=== PATIENT | female | born 1995 | race Caucasian/White ===

== ENCOUNTER 2025-01-23 09:47 | Emergency (ER) | payer OTHER, SELFPAY ==
--- NOTE | 2025-01-23 09:56 | ED.EXTPRO ---
HPI - Extremity Problem General Chief complaint: Extremity Problem,Nontraumatic Stated complaint: rt shoulder pain Time Seen by Provider: 01/23/25 09:56 Source: patient Mode of arrival: ambulatory Limitations: no limitations History of Present Illness HPI Narrative: Chaya is a 29-year-old female patient presenting to the clinic today with complaints of right shoulder pain/shoulder blade pain x2 weeks. She reports she is having pain when lifting upper arm in her right shoulder blade and also when pushing. States the pain is sharp when she is using her right arm and dull/aching without use of the right arm. Also reports some pain to the right posterior shoulder. No known injury. Rates her pain currently 7 at 10. Denies any radiation of pain down her right arm. Denies any chest pain or shortness of breath. No URI symptoms. States she does heavy lifting at work. Related Data Allergies Allergy/AdvReac Type Severity Reaction Status Date / Time Penicillins Allergy Unknown Unknown Verified 01/23/25 10:11 Review of Systems Review of Systems: Pertinent positives per HPI. Patient denies any fever, chills, rash, headache, visual changes, dizziness, cough, runny nose, sore throat, shortness of breath, chest pain, palpitations, nausea, vomiting, diarrhea, constipation, abdominal pain, or any urinary issues. PMFSH Comments At the time of my signature, I reviewed and agree with the nursing past medical, surgical, social, and family history. There is no relevant family history pertinent to the patient complaint. Exam Narrative: General: Well-developed, well nourished, in no apparent distress Head: Normocephalic, atraumatic. Cardio: Regular rate and rhythm, s1 and s2 normal, no murmur appreciated. Resp: Clear to auscultation bilaterally, no rhonchi, rales, wheezing or rubs. Musculoskeletal: No deformity, no bruising or swelling, tender to palpation over the right rhomboid musculature and over the right posterior shoulder/rotator cuff, pain with lifting her arm above her head on the right side, able rib to resist empty can in full can testing however she had posterior right shoulder pain with movement, grossly normal range of motion, muscle strength strong and equal, equal strong bilateral hand strength, peripheral pulse strong, no edema, no cyanosis, normal gait and station Course Course Emergency Course: Portions of this record may have been created with voice recognition software. Level of Care: Express Care Visit Vital Signs Vital signs: Vital Signs Temperature 36.9 C 01/23/25 10:08 Pulse Rate 75 01/23/25 10:08 Respiratory Rate 20 01/23/25 10:08 Blood Pressure 131/81 01/23/25 10:08 Pulse Oximetry 100 01/23/25 10:08 Oxygen Delivery Room Air 01/23/25 10:08 Temperature 36.9 C 01/23/25 10:08 Pulse Rate 75 01/23/25 10:08 Respiratory Rate 20 01/23/25 10:08 Blood Pressure 131/81 01/23/25 10:08 Pulse Oximetry 100 01/23/25 10:08 Oxygen Delivery Room Air 01/23/25 10:08 Vital signs reviewed MDM - Extremity (Nontraumatic) MDM Narrative Medical decision making narrative: At the time of visit patient is resting comfortably on the exam table. Patient appears to be nontoxic. Plan: I suspect patient has a right rhomboid muscle strain/right shoulder tendinitis. Prescription for Medrol Dosepak and muscle relaxer was sent to the pharmacy. Work note was given. Supportive measures were discussed with the patient and they voiced understanding discharge instructions and agrees to treatment plan. Return precautions reviewed Differential Diagnosis Differential diagnosis: Likely other (Shoulder tendinitis, shoulder strain, right scapular pain, right rhomboid muscle strain, shoulder impingement, AC joint separation, rotator cuff injury) Discharge Plan Discharge Clinical Impression: Right shoulder tendinitis Muscle strain of right shoulder region Qualifiers: Encounter type: initial encounter Qualified Code(s): S46.911A - Strain of unspecified muscle, fascia and tendon at shoulder and upper arm level, right arm, initial encounter Patient Disposition: Home Condition: Stable Instructions: Antibiotic Form, Muscle Strain (ED), Rotator Cuff Tendinitis (ED) Additional Instructions: Take any prescription medication only as prescribed-Medrol Dosepak and Flexeril Be mindful of sedation precautions given to you if taking a muscle relaxer. May use heat or ice to the affected area Consider massage or chiropractor adjustment if this was discussed with provider May use blue emu, lidocaine patches, or asper cream to affected area- do not apply heat or ice directly over cream- can cause burn. Complete appropriate back stretching exercises. Follow up with your PCP in 3-5 days if symptom persist. Patient Language: Spanish Prescriptions: New methylprednisolone [Medrol (Héctor)] 4 mg tablets,dose pack See Rx Instructions PO .COMPLEX Qty: 21 0RF Rx Instructions: orally per package directions cyclobenzaprine 10 mg tablet 10 mg PO Q8H PRN (Reason: muscle spasm) 7 Days Qty: 21 0RF Follow-up/Referrals: Aziza,MYRNA Espinosa [Primary Care Provider] - Stand Alone Forms: Work/School Release IP Time of Disposition: 10:18 Quality NIHSS Nursing Documentation ED NIHSS nursing documentation: reviewed/agree
--- OUTSIDE RECORDS SUMMARY | 2025-01-23 09:58 | XMS_ITS | Clinical Summary ---
Author Organization [facility] Address [address] [place] [address] Care Team Providers Care Hiv/Aids Care Nurse Name Role Phone Stuart Ervin Primary Care Provider Stuart Ervin Unavailable [phone] Allergies Active Allergy Reactions Criticality Noted Date Comments Penicillins Rash Medium Medications PNV 16-iron fum,pu-snlxj-pnn g3 35-1-200 mg capsule Take 1 tablet by mouth daily. Active ibuprofen (ADVIL,MOTRIN) 600 mg tabletIndication s:Pain Take 1 tablet (600 mg total) by mouth every 6 (six) hours as needed for pain. 30 tablet 1 07/29/2018 Active HYDROcodone-acet aminophen (NORCO) 5-325 mg per tabletIndication s:Pain Take 1 tablet by mouth every 6 (six) hours as needed for pain. 30 tablet 07/29/2018 Active Active Problems Problem Noted Date Diagnosed Date Asthma 03/10/2021 Anemia 03/15/2017 Immunizations Immunization Administration Dates Next Due MMR 07/29/2018 Surgical History Surgery Date Site/Laterality Comments TONSILLECTOMY Tonsillectomy SECTION Medical History Medical History Date Comments Hx Other Medical rt foot fx Anemia Gestational diabetes Family History Medical History Relation Name Comments COPD Maternal Grandfather Diabetes Maternal Grandfather Hypertension Maternal Grandfather Heart disease Maternal Grandmother Hypertension Maternal Grandmother Stroke Maternal Grandmother Diabetes Paternal Grandfather Hypertension Paternal Grandfather Arthritis Paternal Grandmother Diabetes Paternal Grandmother Relation Name Status Comments Father Alive Maternal Grandfather Maternal Grandmother Mother Alive Paternal Grandfather Paternal Grandmother Alive Social History Tobacco Use Types Packs/Day Years Used Date Smoking Tobacco: Never Smokeless Tobacco: Never Alcohol Use Standard Drinks/Week Comments No 0 (1 standard drink = 0.6 oz pur e alcohol) Comments No Sex and Gender Information Value Date Recorded Sex Assigned at Not on file Legal 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 Gender Identity Not on file Sexual Orientation Not on file Obstetrics History Para Term AB IAB SAB Ectopic Multiple Livin g Live Births 2 1 1 1 1 Date Outcome GA Total Labor Labor/2nd/3rd Weight Sex Type Anes PTL Gayle A1 A5 Name Clin 08/2016 Term 39w 5d F CS-LT ranv Epidur al N Livin g Complications:Failure to Pro alexandru in First Stage Last Filed Vital Signs Vital Sign Reading Time Taken Comments Blood Pressure 122/72 03/10/2021 12:34 AM CDT Pulse 77 03/10/2021 12:34 AM CDT Temperature 36.4 C (97.6 F) 03/09/2021 10:01 PM CDT Respiratory Rate 15 03/10/2021 12:34 AM CDT Oxygen Saturation 99% 03/10/2021 12:34 AM CDT Inhaled Oxygen Concentration - - Weight 69.9 kg (154 lb) 03/09/2021 10:01 PM CDT Height 152.4 cm (5') 03/09/2021 10:01 PM CDT Body Mass Index 30.08 03/09/2021 10:01 PM CDT Plan of Treatment Health Maintenance Due Date Last Done Comments Cervical Cancer Screening 1997 Depression Screening 1997 Hepatitis C Screening 1997 Varicella Vaccines (1 of 2 - 13+ 2-dose series) 2010 Hepatitis B Screening 2015 Regular Well Visit/Exam 18-64 2015 Pneumococcal vaccine <65 (1 of 2 - PCV) 01/25/2016 Influenza Vaccine (Season Ended) 2025 DTaP/Tdap/Td Vaccine (2 - Td or Tdap) 07/01/202809/2017 HPV Vaccines Completed 03/08/2009, 04/10/2008 Insurance IDPA [facility] OTHER Address: [address] [place] [id number] [facility] OOS IDPA [facility] FriendFeed OOS [facility] CHOICE PLUS [facility] CHO[facility] PL[facility] Advance Directives For more information, please contact: [phone] * Full Code (Latest Code Status on File) Date Activated Date Inactivated Comments 07/27/2018 9:44 PM 07/30/2018 5:23 AM * Full Code Date Activated Date Inactivated Comments 07/27/2018 5:56 AM 07/27/2018 9:44 PM Full CPR i n case of cardiopulmonary arrest Care Teams Hiv/Aids Care Nurse Relationship Specialty Start Date End Date Stuart Ervin PA [address] [place] [address] PCP - General 11/11/17 Stuart Ervin PA [address] [place] [address] 11/11/17
--- OUTSIDE RECORDS SUMMARY | 2025-01-23 09:58 | XMS_ITS | Clinical Summary ---
Author Organization [facility] Address [address] [place] [address] Care Team Providers Care Tailman Name Role Phone Nicole Ervin Primary Care Provider [phone] Source Comments [facility],non-owned Affiliates and Associated Physician Practices is amultiple site organization consisting of ambulatory clinics and hospital sitesin [place], [place], [place] and [place]. This disclosure is being madepursuant to the Care Everywhere program and may not contain all information available regarding this patient. Last updated 18.[facility] Allergies Active Allergy Reactions Criticality Noted Date Comments Penicillins 10/09/2011 Medications * Be aware that medications may not be up to date on this document. Alwaysverify current medications with the patient. albuterol HFA (PROVENTIL;VICKY ELISA;PROAIR) 108 (90 BASE) MCG/ACT inhaler Inhale 2 Puffs by mouth every 6 hours as needed. 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 Gender Identity Not on file Sexual Orientation Not on file Last Filed Vital Signs Vital Sign Reading Time Taken Comments Blood Pressure 114/64 07/07/2012 10:00 AM FRICTION SAW OPERATOR Pulse 72 07/07/2012 10:00 AM FRICTION SAW OPERATOR Temperature - - Respiratory Rate 16 07/07/2012 10:00 AM FRICTION SAW OPERATOR Oxygen Saturation - - Inhaled Oxygen Concentration - - Weight 44.6 kg (98 lb 5.2 oz) 07/07/2012 10:00 A M FRICTION SAW OPERATOR Height 150.9 cm (4' 11.41) 07/07/2012 10:00 AM FRICTION SAW OPERATOR Body Mass Index 19.59 07/07/2012 10:00 AM FRICTION SAW OPERATOR Plan of Treatment Health Maintenance Due Date Last Done Comments HIV SCREENING 01/25/2012 HEPATITIS C SCREENING 01/20/2015 DTAP/TDAP/TD VACCINES (1 - Tdap) 01/25/2016 HEPATITIS B VACCINE (1 of 3 - 19+ 3-dose series) 01/25/2016 COVID-19 VACCINE (1 - 2023-2 5 season) 2024 DEPRESSION SCREENING 08/30/2024 INFLUENZA VACCINE (Season Ended) 2025 ZOSTER VACCINE (1 of 2) 2047 HIB VACCINE Aged Out No longer eligi ble based on patient's age to complete this topic HPV VACCINE Aged Out No longer eligi ble based on patient's age to complete this topic MENINGOCOCCAL (Group B) VACC INE SHARED DECISION-MAKING Aged Out No longer eligibl e based on patient's age to complete this topic MENINGOCOCCAL GROUPS A/C/Y/W VACCINE Aged Out No longer eligible b ased on patient's age to complete this topic PNEUMOCOCCAL VACCINE Aged Out No long er eligible based on patient's age to complete this topic Insurance MEDICAID - [place] Care Teams Tailman Relationship Specialty Start Date End Date Nicole Ervin PA [address] [place] [address] PCP - General 10/09/11
--- OUTSIDE RECORDS SUMMARY | 2025-01-23 09:58 | XMS_ITS | Referral Summary ---
Author Organization [facility] Address [address] [place] [address] Care Team Providers Care Solar Fabrication Technician Name Role Phone Stuart Ervin Primary Care Provider [phone] Stuart Ervin Unavailable [phone] Allergies Active Allergy Reactions Criticality Noted Date Comments Penicillins Rash Medium Medications PNV 16-iron fum,hw-ldsgl-mbh g3 35-1-200 mg capsule Take 1 tablet [...] Immunization Administration Dates Next Due MMR 07/29/2018 Social History Tobacco Use Types Packs/Day Years Used Date Smoking Tobacco: Never Smokeless Tobacco: Never Alcohol Use Standard Drinks/Week Comments No 0 (1 standard drink = 0.6 oz pur e alcohol) Comments No Sex and Gender Information Value Date Recorded Sex Assigned at Not on file 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 Gender Identity Not on file Sexual Orientation [...] 03/09/2021 10:01 PM CDT Plan of Treatment Not [place] [address] IDPA [facility] Retina Implant [facility] OOS IDPA [facility] OOS Member Subscriber Plan / Payer (Ef fective 2021-Present) Name:Chaya Reyes Relation to Subscriber:Self Name:Chaya Reyes Payer ID:[id number] (NAIC) Type:[employer] Address: [address] [facility] H[facility]/PPO Address: [address] [address] [place] [address] [facility] Address: [address] [address] [place] [id number] Advance Directives For more information, please contact: [phone] * Full Code (Latest Code Status on File) Date Activated Date Inactivated Comments 07/27/2018 9:44 PM 07/30/2018 5:23 AM * Full Code Date Activated Date Inactivated Comments 07/27/2018 5:56 AM 07/27/2018 9:44 PM Full CPR in case of cardiopulmonary arrest Care Teams Solar Fabrication Technician Relationship Specialty Start Date End Date Stuart Ervin PA [address] [place] [address] PCP - General 11/11/17 Stuart Ervin PA [address] [place] [address] 11/11/17
[2025-01-23 10:08] VITALS: BP 131/81; PULSE 75; RESP 20; TEMP 36.9; O2SAT 100
--- OUTSIDE RECORDS SUMMARY | 2025-01-23 10:08 | XMS_ITS | Clinical Summary ---
Author Organization [facility] Address [address] [place] [address] Phone Care Team Providers Care Pole Classifier Name Role Phone Stuart Ervin Primary Care Provider [phone] Allergies Active Allergy Reactions Criticality Noted Date Comments Penicillins Hives,Swelling 08/26/2016 Medications Vit-Fe Fumarate-FA ( VITAMIN PO) Take by mouth. Active ferrous sulfate 325 (65 FE) MG Tablet Take 325 mg by mouth daily. Active HYDROcodone-acet aminophen (NORCO) 5-325 MG Tablet Take 1-2 Tabs by mouth every 4 hours as needed. 30 Tab 0 09/20/2016 Active ibuprofen (MOTRIN) 600 MG Tablet Take 1 Tab by mouth every 6 hours as needed. 30 Tab 3 09/20/2016 Active Family History Medical History Relation Name Comments Diabetes Maternal Grandfather Sickle Cell Anemia Maternal Grandfather Diabetes Maternal Grandmother Stroke Maternal Grandmother Tuberculosis Maternal Grandmother Diabetes Paternal Grandfather Heart Attack Paternal Grandfather Heart Disease Paternal Grandfather Diabetes Paternal Grandmother Crohn's Disease Sister Relation Name Status Comments Maternal Grandfather Maternal Grandmother Paternal Grandfather Paternal Grandmother Sister Social History Tobacco Use Types Packs/Day Years Used Date Smoking Tobacco: Never Alcohol Use Standard Drinks/Week Comments No 0 (1 standard drink = 0.6 oz pur e alcohol) Sexually Active Control Partners Comments Never Male Comments No Sex and Gender Information Value Date Recorded Sex Assigned at Not on file Legal Sex Female 12:34 PM PICKING MACHINE OPERATOR HELPER Gender Identity Not on file Sexual Orientation Not on file Last Filed Vital Signs Vital Sign Reading Time Taken Comments Blood Pressure 139/71 09/20/2016 3:00 PM PICKING MACHINE OPERATOR HELPER Pulse 87 09/20/2016 3:00 PM PICKING MACHINE OPERATOR HELPER Temperature 36.8 C (98.3 F) 09/20/2016 3:00 PM PICKING MACHINE OPERATOR HELPER Respiratory Rate 18 09/20/2016 3:00 PM PICKING MACHINE OPERATOR HELPER Oxygen Saturation 98% 09/19/2016 3:00 AM PICKING MACHINE OPERATOR HELPER Inhaled Oxygen Concentration - - Weight 58.5 kg (129 lb) 09/17/2016 9:00 AM PICKING MACHINE OPERATOR HELPER Height 152.4 cm (5') 09/17/2016 9:00 AM PICKING MACHINE OPERATOR HELPER Body Mass Index 25.19 09/17/2016 9:00 AM PICKING MACHINE OPERATOR HELPER Plan of Treatment Health Maintenance Due Date Last Done Comments Hepatitis C Virus (HCV) Screening 1997 Hepatitis B Immunization (1 of 3 - 19+ 3-dose series) 01/25/2016 Pap Smear 2018 Influenza Immunization (#1) 2024 SARS-COV-2 Immunization ( season) 2024 Respiratory Syncytial Virus (RSV) Immunization (Adult) (1 - 1-dose 75+ series) 01/25/2072 Human Papillomavirus (HPV) Immunization Discontinued 03/08/2009, 04/10/2008 DTaP/Tdap/Td Immunization Discontinued 07/01/2018 TdaP Immunization Completed 07/01/2018 Meningococcal Immunization (ACWY) Aged Out No longer eligible based on patient's age to complete this topic Pneumococcal Immunization Combined Aged Out No longer eligible based on patient's age to complete this topic Rotavirus Immunization Aged Out No lo nger eligible based on patient's age to complete this topic [place] [address] [place] [address] Advance Directives * Full Code (Latest Code Status on File) Date Activated Date Inactivated Comments 09/17/2016 10:55 AM 09/20/2016 9:24 PM CPR-Full Tr eatment: FULL ARREST: Attempt Resuscitation/CPR wit intubation and mechanical ventilation. PRE-ARREST: Use entire range of life support measures to stabilize the patient. * Full Code Date Activated Date Inactivated Comments 09/13/2016 7:34 PM 09/13/2016 10:58 PM CPR-Full Tr eatment: FULL ARREST: Attempt Resuscitation/CPR wit intubation and mechanical ventilation. PRE-ARREST: Use entire range of life support measures to stabilize the patient. * Full Code Date Activated Date Inactivated Comments 09/13/2016 4:37 AM 09/13/2016 10:31 AM CPR-Full Tr eatment: FULL ARREST: Attempt Resuscitation/CPR wit intubation and mechanical ventilation. PRE-ARREST: Use entire range of life support measures to stabilize the patient. * Full Code Date Activated Date Inactivated Comments 09/04/2016 5:30 PM 09/04/2016 10:35 PM CPR-Full Yi tment: FULL ARREST: Attempt Resuscitation/CPR wit intubation and mechanical ventilation. PRE-ARREST: Use entire range of life support measures to stabilize the patient. * Full Code Date Activated Date Inactivated Comments 09/04/2016 5:29 PM 09/04/2016 5:30 PM CPR-Full Treat ment: FULL ARREST: Attempt Resuscitation/CPR wit intubation and mechanical ventilation. PRE-ARREST: Use entire range of life support measures to stabilize the patient. Care Teams Pole Classifier Relationship Specialty Start Date End Date Stuart Ervin, [place] [address] [place] [address] PCP - General Physician Airborne Operations Manager 09/17/16
== END 2025-01-23 10:23 | disposition home or self-care (01) ==
PROVIDERS: Emergency Provider Nurse Practitioner Family; PCP Physician Assistant
DX: M75.81 Other shoulder lesions, right shoulder (principal); S46.911A Strain of unspecified muscle, fascia and tendon at shoulder and upper arm level, right arm, initial encounter; X58.XXXA Exposure to other specified factors, initial encounter
CPT/HCPCS: 99203; G0463